=== PATIENT | female | born 1950 | race Caucasian/White ===

== ENCOUNTER 2016-12-14 08:22 | Outpatient (CLI) | payer MEDICARE, OTHER ==
--- NOTE | 2016-12-14 14:00 | Ultrasound Report ---
THYROID ULTRASOUND: 12/14/2016 CLINICAL INDICATION: Abnormal TSH. TECHNIQUE: Real-time scanning was performed with solar manufacturer's representative static images obtained. FINDINGS: The right lobe measures 4.9 x 1.8 x 1.4 cm, and the left lobe measures 5.1 x 2.1 x 1.6 cm. The isthmus measures 3 mm. There are multiple bilateral thyroid nodules. The dominant lesion, in the lower pole of the left lobe, measures 2.8 x 2.0 x 1.9 cm, and demonstrates internal calcifications a nd vascularity. Fine needle aspiration of this dominant suspicious nodule is recommended. IMPRESSION: MULTINODULAR THYROID, WITH A SUSPICIOUS 2.8 CM NODULE IN THE LOWER POLE OF THE LEFT LOBE . CONSIDER FINE NEEDLE ASPIRATION OF THIS DOMINANT SUSPICIOUS NODULE. JOB #: [id number] EXT JOB #:[id number]
== END 2016-12-14 08:23 | disposition home or self-care (01) ==
LOC: DI 08:22
PROVIDERS: ATTEND Family Medicine
DX: E04.2 Nontoxic multinodular goiter (principal)
CPT/HCPCS: 76536

== ENCOUNTER 2018-09-14 09:37 | Outpatient (CLI) | payer MEDICARE, OTHER ==
[2018-09-14 14:31] LABS: BASOPHILS % (AUTO) 0.7 %; EOSINOPHILS # (AUTO) 0.1 10^3/uL (0.0-0.7); EOSINOPHILS % (AUTO) 1.5 %; HGB - HEMOGLOBIN 14.6 g/dL (12.0-16.0); LYMPHOCYTES # (AUTO) 1.1 10^3/uL (1.5-3.5); LYMPHOCYTES % (AUTO) 21.4 %; MEAN CORPUSCULAR HEMOGLOBIN 32.6 pg (27.0-31.0); MEAN CORPUSCULAR HGB CONC 34.4 g/dL (32.0-36.0); MEAN CORPUSCULAR VOLUME 94.7 fL (81.0-99.0); MEAN PLATELET VOLUME 9.6 fL (7.9-10.8); MONOCYTES # (AUTO) 0.6 10^3/uL (0.0-1.0); NEUTROPHILS # (AUTO) 3.3 10^3/uL (1.5-6.6); NEUTROPHILS % (AUTO) 64.4 %; PLT - PLATELET COUNT 202 10^3/uL (130-450); RED BLOOD COUNT 4.47 10^6/uL (4.20-5.40); RED CELL DISTRIBUTION WIDTH 12.9 % (12.0-15.0); WHITE BLOOD COUNT 5.2 x10^3/uL (4.8-10.8)
[2018-09-14 14:33] LABS: ALBUMIN 3.9 g/dL (3.2-5.5); ALBUMIN/GLOBULIN RATIO 1.4 (1.0-2.2); BILIRUBIN,TOTAL 0.6 mg/dL (0.2-1.0); CALCIUM 10.5 mg/dL (8.5-10.3); CREATININE 0.6 mg/dL (0.4-1.0); TOTAL PROTEIN 6.7 g/dL (6.7-8.2)
[2018-09-14 16:33] LABS: FREE T4 (FREE THYROXINE) 0.75 ng/dL (0.58-1.64)
== END 2018-09-14 09:38 | disposition home or self-care (01) ==
LOC: LAB.WCP 09:37
PROVIDERS: ATTEND Family Medicine
DX: R03.0 Elevated blood-pressure reading, without diagnosis of hypertension (principal); F32.9 Major depressive disorder, single episode, unspecified; R94.6 Abnormal results of thyroid function studies
CPT/HCPCS: 36415; 80053; 84439; 84443; 85025

== ENCOUNTER 2018-09-20 08:00 | Outpatient (CLI) | payer MEDICARE, OTHER ==
[2018-09-20 15:03] LABS: CHOL/HDL RATIO 3.8 (<4.4); CHOLESTEROL 240 mg/dL; HDL CHOLESTEROL 64 mg/dL; LDL CHOLESTEROL,CALCULATED 148 mg/dL; LDL/HDL RATIO 2.3 (<4.4); VLDL CHOLESTEROL 28 mg/dL
== END 2018-09-20 23:59 | disposition home or self-care (01) ==
LOC: LAB.WCP 08:00
PROVIDERS: ATTEND Family Medicine
DX: F32.9 Major depressive disorder, single episode, unspecified (principal); Z79.899 Other long term (current) drug therapy; Z13.220 Encounter for screening for lipoid disorders
CPT/HCPCS: 36415; 80061; 83721; 83970

== ENCOUNTER 2018-12-26 10:04 | Outpatient (CLI) | payer MEDICARE, OTHER ==
--- NOTE | 2018-12-26 17:58 | XRAY Report ---
Reason: COUGH Procedure Date: 12/26/2018 Accession Number: [id number] / [id number] Procedure: WCP - Chest 2 View X-Ray CPT Code: 76678 FULL RESULT: EXAM: CHEST RADIOGRAPHY EXAM DATE: 12/26/2018 10:18 AM. CLINICAL HISTORY: COUGH. COMPARISON: None. TECHNIQUE: 2 views. FINDINGS: Lungs/Pleura: No focal pneumonia or edema evident. No gross pneumothorax or pleural effusion. Mediastinum: Mild cardiomegaly. Stable aortic contour. Other: None. IMPRESSION: 1. No evidence of pneumonia. 2. Mild cardiomegaly without overt heart failure. RADIA
== END 2018-12-26 10:05 | disposition home or self-care (01) ==
LOC: DI.WCP 10:04
PROVIDERS: ATTEND Family Medicine
DX: R05 Cough (principal); I51.7 Cardiomegaly
CPT/HCPCS: 71046

== ENCOUNTER 2019-02-07 11:12 | Outpatient (CLI) | payer MEDICARE, OTHER ==
[2019-02-07 11:44] LABS: ALBUMIN 4.3 g/dL (3.2-5.5); ALBUMIN/GLOBULIN RATIO 1.3 (1.0-2.2); BILIRUBIN,TOTAL 0.8 mg/dL (0.2-1.0); CALCIUM 10.9 mg/dL (8.5-10.3); CREATININE 0.7 mg/dL (0.4-1.0); TOTAL PROTEIN 7.5 g/dL (6.7-8.2)
[2019-02-07 12:49] LABS: FREE T4 (FREE THYROXINE) 0.72 ng/dL (0.58-1.64)
== END 2019-02-07 11:13 | disposition home or self-care (01) ==
LOC: LAB 11:12
PROVIDERS: ATTEND Family Medicine
DX: E05.90 Thyrotoxicosis, unspecified without thyrotoxic crisis or storm (principal); E83.52 Hypercalcemia; R00.8 Other abnormalities of heart beat; R06.00 Dyspnea, unspecified
CPT/HCPCS: 36415; 80053; 83970; 84439; 84443; 84481; 84484

== ENCOUNTER 2019-02-12 14:53 | Outpatient (CLI) | payer MEDICARE, OTHER ==
--- NOTE | 2019-02-13 11:45 | Ultrasound Report ---
Reason: HYPERTHYROIDISM, THYROID NODULE, ELEVATED PARATHYR Procedure Date: 02/12/2019 Accession Number: [id number] / [id number] Procedure: US - Head or Neck Soft Tissue CPT Code: FULL RESULT: EXAM: THYROID ULTRASOUND EXAM DATE: 02/12/2019 04:14 PM. CLINICAL HISTORY: Hyperthyroidism, thyroid nodule, elevated parathyroid. COMPARISON: HEAD OR NECK SOFT TISSUE 12/14/2016 9:03 AM. TECHNIQUE: Real time sonographic imaging of the thyroid was performed by the firer marine. Multiple billing customer service representative static images were saved for review. FINDINGS: THYROID GLAND: Right Lobe: 4.8 x 1.9 x 1.5 cm, volume 6.5 cc. Normal background echotexture. Right Lobe Nodules: Dominant 1.4 x 0.8 x 1.1 cm heterogeneous vascular mostly solid-appearing nodule with microcalcifications. Left Lobe: 6.0 x 1.7 x 1.8 cm, volume 8.8 cc. Normal background echotexture. Left Lobe Nodules: In the left mid pole near the junction with the isthmus is a complex vascular nodule with microcalcifications which measures 2.6 x 1.2 x 1.7 cm. In the medial mid thyroid there is a 1.0 x 0.5 x 0.7 cm hypoechoic nodule. Occupying the inferior pole of the left thyroid gland is a 2.6 x 1.7 x 1.7 cm isoechoic nodule with microcalcifications and irregular border. Isthmus: 0.6 cm AP. Isthmic Nodules: None. LYMPH NODES: Medial to the left lobe of the thyroid is a well-demarcated hypoechoic 2.2 x 1.1 x 0.8 cm nodule with abnormal morphology, possibly a lymph node with loss of architecture. OTHER: None. IMPRESSION: The dominant right thyroid nodule as well as the nodule in the inferior pole of the left gland warrant tissue sampling fine-needle aspiration. Additionally, the nodule near the isthmus warrants tissue sampling and has enlarged in the interval. Abnormal-appearing nodule medial to the left lobe of the thyroid. Recommendation: Thyroid FNA bilaterally of the dominant right thyroid nodule and the 2 largest nodules in the left thyroid gland as detailed above. Separately, ultrasound-guided biopsy of the presumed lymph node near the thyroid gland should be performed, given the location, and decision of core biopsy versus fine-needle aspiration would be combat systems operator mine warfare dependent. Management recommendations are based on 2015 [place] [employer] Management Guidelines for Adult Patients with Thyroid Nodules and Differentiated Thyroid Cancer. RADIA
== END 2019-02-12 14:54 | disposition home or self-care (01) ==
LOC: DI 14:53
PROVIDERS: ATTEND Family Medicine
DX: E04.2 Nontoxic multinodular goiter (principal)
CPT/HCPCS: 76536

== ENCOUNTER 2019-03-06 13:43 | Outpatient (CLI) | payer MEDICARE, OTHER ==
[2019-03-06 18:41] LABS: HGB - HEMOGLOBIN 16.1 g/dL (12.0-16.0); MEAN CORPUSCULAR HEMOGLOBIN 31.9 pg (27.0-31.0); MEAN CORPUSCULAR HGB CONC 33.2 g/dL (32.0-36.0); MEAN CORPUSCULAR VOLUME 96.2 fL (81.0-99.0); MEAN PLATELET VOLUME 11.9 fL (7.9-10.8); RED BLOOD COUNT 5.04 10^6/uL (4.20-5.40); RED CELL DISTRIBUTION WIDTH 12.9 % (12.0-15.0); WHITE BLOOD COUNT 6.8 x10^3/uL (4.8-10.8)
[2019-03-06 18:51] LABS: ALBUMIN 4.6 g/dL (3.2-5.5); ALBUMIN/GLOBULIN RATIO 1.6 (1.0-2.2); BILIRUBIN,TOTAL 0.7 mg/dL (0.2-1.0); CREATININE 0.8 mg/dL (0.4-1.0); TOTAL PROTEIN 7.5 g/dL (6.7-8.2)
== END 2019-03-06 23:59 | disposition home or self-care (01) ==
LOC: LAB.WCP 13:43
PROVIDERS: ATTEND Family Medicine
DX: I11.0 Hypertensive heart disease with heart failure (principal); I50.9 Heart failure, unspecified
CPT/HCPCS: 36415; 80053; 83880; 85027

== ENCOUNTER 2019-04-19 08:52 | Outpatient (CLI) | payer MEDICARE, OTHER ==
[2019-04-19 09:42] LABS: CALCIUM 10.6 mg/dL (8.5-10.3); CREATININE 0.7 mg/dL (0.4-1.0)
== END 2019-04-19 08:53 | disposition home or self-care (01) ==
LOC: LAB 08:52
PROVIDERS: ATTEND Internal Medicine Cardiovascular Disease
DX: I50.22 Chronic systolic (congestive) heart failure (principal)
CPT/HCPCS: 36415; 80048

== ENCOUNTER 2022-05-02 07:42 | Emergency (ER) | payer MEDICARE, OTHER ==
--- NOTE | 2022-05-02 08:09 | ED Physician Documentation ---
PD HPI BACK PAIN - Stated complaint Stated Complaint: BACK PX - Chief complaint Chief Complaint: Back Pain - History obtained from History obtained from: Patient - History of Present Illness Timing - onset: How many months ago (1) Timing - duration: Months (1) Timing - details: Gradual onset (was lying in back of camper truck for few hours while on a trip. noted pain lateral in right flank area that has persisted and recently worse. Occurs intermittently, not continual so had not gone to PMD/gotten eval until now.), Still present, Waxing and waning (worse at rest and lying down, improved but not gone during day when up and around. Right flank area.) Location: Mid, Right (flank area) Quality: Pain, Sharp Associated symptoms: No: Fever, Weakness, Numbness Review of Systems Constitutional: denies: Fever, Chills Nose: denies: Rhinorrhea / runny nose, Congestion Throat: denies: Sore throat Respiratory: denies: Cough GI: denies: Abdominal Pain, Nausea, Vomiting, Constipation, Diarrhea : denies: Dysuria, Frequency Skin: denies: Rash, Lesions Musculoskeletal: reports: Back pain. 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 : Renal insuffiency HEENT: None Psych: Depression, Anxiety Musculoskeletal: None Derm: None - Past Surgical History Past Surgical History: Yes General: Other /VISCOSE DEPARTMENT WORKER: Tubal ligation, Hysterectomy HEENT: Tonsil/Adenoidectomy - Present Medications Home Medications: Ambulatory Orders Medication Instructions Recorded Confirmed Aspirin EC [Ecotrin] 81 mg PO DAILY 05/02/22 05/02/22 HYDROcod/ACETAM 5/325 [[place] 5/325] 1 ea PO Q6H PRN #20 tablet 05/02/22 Mv-Mn/Om3/Dha/Epa/Fish/Lut/Bassem 1 each PO DAILY 05/02/22 05/02/22 [Ocuvite Adult 50 Plus Softgel] Naproxen 500 mg PO BID #20 tab 05/02/22 lisinopriL [Zestril] 5 mg PO DAILY 05/02/22 05/02/22 tiZANidine [Zanaflex] 4 mg PO Q8H PRN #25 tablet 05/02/22 - Allergies Allergies/Adverse Reactions: Allergies Allergy/AdvReac Type Severity Reaction Status Date / Time No Known Drug Allergies Allergy Verified 05/02/22 07:48 - Social History Does the pt smoke?: No Smoking Status: Never smoker - Immunizations Immunizations are current?: Yes PD ED PE NORMAL - Vitals Vital signs reviewed: Yes - General General: Alert and oriented X 3, No acute distress, Well developed/nourished - Neck Neck: Supple, no meningeal sign, No adenopathy - Cardiac Cardiac: RRR, No murmur - Respiratory Respiratory: Clear bilaterally - Abdomen Abdomen: Normal bowel sounds, Soft, Non tender, Non distended - Back Back: No spinal TTP - Derm Derm: Normal color, Warm and dry, No rash - Extremities Extremities: Normal ROM s pain, No edema, No calf tenderness / cord - Neuro Neuro: Alert and oriented X 3, No motor deficit, No sensory deficit, Normal speech Results - Vitals Vitals: Oxygen O2 Source Room air - Labs Labs: Microbiology 05/02/22 10:00 Urine Culture - Final Urine,Random Escherichia Coli Laboratory Tests 05/02/22 05/02/22 05/02/22 08:45 08:45 10:00 WBC 5.2 RBC 4.43 Hgb 14.1 Hct 41.0 MCV 92.6 MCH 31.8 H MCHC 34.4 RDW 12.4 Plt Count 245 MPV 10.5 Neut # (Auto) 3.2 Lymph # (Auto) 1.2 L [place] # (Auto) 0.7 Eos # (Auto) 0.1 Baso # (Auto) 0.0 Absolute Nucleated RBC 0.00 Nucleated RBC % 0.0 Sodium 137 Potassium 4.2 Chloride 105 Carbon Dioxide 27 Anion Gap 5.0 L BUN 15 Creatinine 0.7 Estimated GFR (MDRD) 82 L Glucose 104 H Calcium 11.0 H Total Bilirubin 0.5 AST 24 ALT 24 Alkaline Phosphatase 61 Total Protein 6.4 L Albumin 4.1 Globulin 2.3 Albumin/Globulin Ratio 1.8 Lipase 43 Urine Color YELLOW Urine Clarity CLEAR Urine pH 6.0 Ur Specific [place] 1.010 Urine Protein NEGATIVE Urine Glucose (UA) NEGATIVE Urine Ketones NEGATIVE Urine Occult Blood NEGATIVE Urine Nitrite POSITIVE H Urine Bilirubin NEGATIVE Urine Urobilinogen 0.2 (NORMAL) Ur Leukocyte Esterase NEGATIVE Urine RBC None Seen Urine WBC 6-10 H Urine WBC Clumps PRESENT Ur Squamous Epith Cells FEW Squamous Urine Bacteria Many H Ur Microscopic Review INDICATED Urine Culture Comments INDICATED - Rads (name of study) abd/pelvic CT Radiology: Prelim report reviewed (no stones. possible duct dilatation (correlate with LFTs). left ovarian cyst. ), See rad report PD MEDICAL DECISION MAKING - ED course Complexity details: reviewed results (no kidney stones nor acute process. LFTs normal. Presume muscular versus nerve root irritation from boundcing in back of truck. ), re-evaluated patient, considered differential, d/w patient Departure - Departure Disposition: Home, Self Care Clinical Impression: Acute right flank pain Condition: Stable Record reviewed to determine appropriate education?: Yes Prescriptions: Naproxen 500 mg PO BID #20 tab HYDROcod/ACETAM 5/325 [[place] 5/325] 1 ea PO Q6H PRN #20 tablet PRN Reason: Pain tiZANidine [Zanaflex] 4 mg PO Q8H PRN #25 tablet PRN Reason: Spasms Comments: Your basic blood test, urine sample and CT scan did not show any obvious acute abnormalities. In particular no kidney stones, kidney infection, pancreatic problems, tumors masses or any obvious spine fractures. At this point I presume you are having some musculoskeletal pain and potentially even some nerve root irritation "pinched nerve". I would suggest some anti-inflammatory of naproxen 500 mg twice daily with food for the next 7 to 10 days. Also tizanidine muscle relaxant particularly at night before bed but up to 2 or 3 times daily for spasms and stiffness. Also add Tylenol every 4-6 hours if needed for pain or hydrocodone if needed for worse pain. Heat and gentle stretching. Chiropractic or massage are good as well. I transmitted your prescriptions to [facility] pharmacy. I am prescribing a short course of narcotic pain medication for you. These are potentially dangerous and addictive medications that should be used carefully. These medications may constipate you. Take an [id number] stool softener such as docusate twice daily with plenty of water while taking these medications. If you go 24 hours without a bowel movement, take opkn-[id number] MiraLAX, per package instructions. Do not drink or drive while taking these medications. If you received narcotic or sedating medications while in the emergency department do not drive for 24 hours. Store this medication in a safe, secure place and out of reach of children. It is a violation of federal law to give or sell this medication to another person or to use in a manner other than prescribed. The ED will not refill narcotic prescriptions, including prescriptions lost or stolen. You can dispose of unwanted medications at the [facility] office or at several pharmacies such as [facility]. Discharge Date/Time: 05/02/22 11:20
[2022-05-02] MEDS ORDERED: KETOROLAC 15 MG/ML VIAL IVP STA (08:40)
[2022-05-02 09:11] LABS: BASOPHILS % (AUTO) 0.4 %; EOSINOPHILS # (AUTO) 0.1 10^3/uL (0.0-0.7); EOSINOPHILS % (AUTO) 1.5 %; HGB - HEMOGLOBIN 14.1 g/dL (12.0-16.0); LYMPHOCYTES # (AUTO) 1.2 10^3/uL (1.5-3.5); LYMPHOCYTES % (AUTO) 22.6 %; MEAN CORPUSCULAR HEMOGLOBIN 31.8 pg (27.0-31.0); MEAN CORPUSCULAR HGB CONC 34.4 g/dL (32.0-36.0); MEAN CORPUSCULAR VOLUME 92.6 fL (81.0-99.0); MEAN PLATELET VOLUME 10.5 fL (7.9-10.8); MONOCYTES # (AUTO) 0.7 10^3/uL (0.0-1.0); MONOCYTES % (AUTO) 12.6 %; NEUTROPHILS # (AUTO) 3.2 10^3/uL (1.5-6.6); NEUTROPHILS % (AUTO) 62.5 %; PLT - PLATELET COUNT 245 10^3/uL (130-450); RED BLOOD COUNT 4.43 10^6/uL (4.20-5.40); RED CELL DISTRIBUTION WIDTH 12.4 % (12.0-15.0); WHITE BLOOD COUNT 5.2 x10^3/uL (4.8-10.8)
[2022-05-02 09:25] LABS: ALBUMIN 4.1 g/dL (3.2-5.5); ALBUMIN/GLOBULIN RATIO 1.8 (1.0-2.2); BILIRUBIN,TOTAL 0.5 mg/dL (0.2-1.0); CREATININE 0.7 mg/dL (0.4-1.0); POTASSIUM 4.2 mmol/L (3.5-5.0); TOTAL PROTEIN 6.4 g/dL (6.7-8.2)
[2022-05-02 10:12] LABS: BILIRUBIN,URINE NEGATIVE (NEGATIVE); GLUCOSE, URINE (UA) NEGATIVE (NEGATIVE); KETONES,URINE (UA) NEGATIVE (NEGATIVE); LEUKOCYTE ESTERASE, URINE NEGATIVE (NEGATIVE); NITRITE,URINE POSITIVE (NEGATIVE); OCCULT BLOOD,URINE NEGATIVE (NEGATIVE); PROTEIN,URINE NEGATIVE (NEGATIVE); UROBILINOGEN,URINE 0.2 (NORMAL) E.U./dL (NORMAL)
[2022-05-02 10:13] LABS: CLARITY,URINE CLEAR (CLEAR)
[2022-05-02 10:21] LABS: BACTERIA,URINE Many /HPF (None Seen); RBC,URINE None Seen /HPF (0-5); SQUAMOUS EPITHELIAL CELL,UR FEW Squamous (<= Few); WBC CLUMPS,URINE PRESENT
--- NOTE | 2022-05-02 10:46 | CT Report ---
PROCEDURE: Abdomen/Pelvis W INDICATIONS: right flank pain for over a month CONTRAST: IV CONTRAST: Optiray 320 ml: 100 PO CONTRAST: *NO PO CONTRAST TECHNIQUE: After the administration of IV contrast, 5 mm thick sections acquired from the diaphragms to the symp hysis. 5 mm thick coronal and sagittal reformats were acquired. For radiation dose reduction, the f ollowing was used: automated exposure control, adjustment of mA and/or kV according to patient size. COMPARISON: None. FINDINGS: Image quality: Excellent. ABDOMEN: Lung bases: Lung bases are clear. Heart size is normal. Solid organs: Liver and spleen are normal in size and enhancement. Subcentimeter left lobe hepatic c yst. Gallbladder appears normal. Bile duct is mildly dilated with the common duct measuring 10 mm, bu t tapering normally to the ampulla. No intrinsic calcifications visible. The proximal pancreatic duct is slightly dilated at 4 mm. Pancreas enhances normally. No adrenal nodules. Kidneys demonstrate n ormal size and enhancement, without hydronephrosis. Subcentimeter partially exophytic right upper po le cyst. No nephrolithiasis. No hydroureter. Peritoneum and bowel: Bowel loops demonstrate normal wall thickness and caliber. Normal appendix. No free fluid or air. Nodes and vessels: No retroperitoneal or mesenteric adenopathy by size criteria. Aorta and inferior vena cava are normal in size. Mild abdominal aortic calcification. Miscellaneous: No ventral hernias. PELVIS: Genitourinary: Bladder wall thickness is normal. The uterus is absent. Right ovarian tissue appears normal. There is a 5.6 cm left ovarian cyst which, on CT appears unilocular. Miscellaneous: No inguinal hernias or adenopathy. Bones: No suspicious bony lesions. No vertebral body compression fractures. IMPRESSION: 1. No evidence of urinary calcifications or obstructive uropathy. 2. Mild extrahepatic biliary dilatation and slight proximal pancreatic ductal dilatation may indicate ampullary stenosis. Correlate with LFTs to determine clinical significance. 3. 5.6 cm unilocular appearing left ovarian cyst. Pelvic ultrasound is recommended for further charac terization. Reviewed by: Susana Ba MD on 05/02/2022 10:44 AM PDT Approved by: Susana Ba MD on 05/02/2022 10:44 AM PDT Station ID: [id number]
[2022-05-02 11:16] VITALS: BP 139/68
== END 2022-05-02 11:20 | disposition home or self-care (01) ==
LOC: ED 07:42
DX: R10.9 Unspecified abdominal pain (principal); M54.6 Pain in thoracic spine; I10 Essential (primary) hypertension
CPT/HCPCS: 36415; 74177; 80053; 81001; 83690; 85025; 87086; 87181; 96374; 99284; Q9967; 81003

== ENCOUNTER 2022-12-24 05:05 | Emergency (ER) | payer MEDICARE, OTHER ==
[2022-12-24] MEDS ORDERED: OXYMETAZOLINE HCL 100 SPRAYS BOTTLE NAS STA (05:22)
--- NOTE | 2022-12-24 05:47 | ED Physician Documentation ---
PD HPI URI - Stated complaint Stated Complaint: CONGESTION/SINUS - Chief complaint Chief Complaint: Heent - History obtained from History obtained from: Patient - History of Present Illness Timing details: Gradual onset (1 month) Associated symptoms: Nasal congestion, Rhinorrhea, Sinus pain, Productive cough, Chest pain Improves by: Nothing Worsened by: Breathing Review of Systems Constitutional: reports: Fatigue Nose: reports: Rhinorrhea / runny nose, Congestion Throat: reports: Sore throat Cardiac: reports: Chest pain / pressure Respiratory: reports: Cough PD PAST MEDICAL HISTORY - Past Medical History Cardiovascular: Congestive heart failure, Hypertension, High cholesterol, Coronary artery disease, Murmur Respiratory: None Neuro: None Endocrine/Autoimmune: HyPERthyroidism, Other GI: None 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 : Renal insuffiency HEENT: None Psych: Depression, Anxiety Musculoskeletal: None Derm: None - Past Surgical History Past Surgical History: Yes General: Other /FILM AND VIDEO EDITOR: Tubal ligation, Hysterectomy HEENT: Tonsil/Adenoidectomy - Present Medications Home Medications: Ambulatory Orders Medication Instructions Recorded Confirmed Aspirin EC [Ecotrin] 81 mg PO DAILY 05/02/22 05/02/22 HYDROcod/ACETAM 5/325 [[place] 5/325] 1 ea PO Q6H PRN #20 tablet 05/02/22 Mv-Mn/Om3/Dha/Epa/Fish/Lut/Bassem 1 each PO DAILY 05/02/22 05/02/22 [Ocuvite Adult 50 Plus Softgel] Naproxen 500 mg PO BID #20 tab 05/02/22 lisinopriL [Zestril] 5 mg PO DAILY 05/02/22 05/02/22 tiZANidine [Zanaflex] 4 mg PO Q8H PRN #25 tablet 05/02/22 Amoxicillin 875 mg PO BID #14 tablet 12/24/22 - Allergies Allergies/Adverse Reactions: Allergies Allergy/AdvReac Type Severity Reaction Status Date / Time No Known Drug Allergies Allergy Verified 05/02/22 07:48 - Social History Does the pt smoke?: No Smoking Status: Never smoker - Immunizations Immunizations are current?: Yes Results - Vitals Vitals: Vital Signs - 24 hr 12/24/22 05:18 Temperature 36.3 C L Heart Rate 82 Respiratory 16 Rate Blood Pressure 154/72 H O2 Saturation 99 Oxygen O2 Source Room air PD Medical Decision Making - ED course ED course: 72yF with pmh chf, htn, p/w nasal congestion, sore throat, cough productive of clear sputum and chest congestion X 1 month, worse over the past four days. Bacterial sinusitis evident on exam. Antibiotics sent to pharmacy. Return precautions given. Plan to f/u with pcp. Departure - Departure Disposition: Home, Self Care Clinical Impression: Rhinosinusitis, Cough Condition: Stable Instructions: ED Sinusitis Abx Tx Prescriptions: Amoxicillin 875 mg PO BID #14 tablet Comments: You are seen in the emergency department for rhinosinusitis (nose infection). Antibiotic prescription was sent electronically to [facility] in [place]. Please follow-up with your primary care provider and return to the emergency department for new or worsening symptoms or other concerns.
[2022-12-24 06:04] VITALS: BP 152/76
== END 2022-12-24 06:02 | disposition home or self-care (01) ==
LOC: ED 05:05
DX: J32.9 Chronic sinusitis, unspecified (principal); R05.9 Cough, unspecified
CPT/HCPCS: 99282; 99283; A9270